=== PATIENT | male | born 1935 | race Caucasian/White ===

== ENCOUNTER → 2016-11-28 | Outpatient (CLI) | payer MEDICARE ==
[2015-07-10 14:50] VITALS: BP 114/65
[~2016-11-28] MED LIST: ASPI-482 PO; ASPI-630 PO; ASPI325T11 PO; ASPI325T8 PO; ATOR10TA60 PO; CELE200C PO; CHOL10003 PO; COLE1TAB2 PO; DOCU100C28 PO; DOXA2TAB PO; DOXA2TAB2 PO; FERR-26 PO; FISH1CAP PO; HYDR-2762 PO; LISI-334 PO; MELA3TAB2 PO; MULT-658 PO; NIAC500T PO; OMEG500C PO; OXYC-323 PO
[2016-11-28 09:22] LABS: BASO % 1 % (0-3); EOS % 3 % (0-3); HEMATOCRIT 43.1 % (39.0-53.0); HEMOGLOBIN 14.7 g/dL (13.0-17.5); LYMPH # 2.1 x10^3/uL (1.0-4.8); LYMPH % 31 % (24-48); MEAN CORPUSCULAR HEMOGLOBIN 33 pg (25-35); MEAN CORPUSCULAR HGB CONC 34 g/dL (31-37); MEAN CORPUSCULAR VOLUME 95 fL (79-100); MONO % 7 % (0-9); NEUT % 59 % (31-73); PLATELET COUNT 153 x10^3/uL (140-400); RED BLOOD COUNT 4.51 x10^6/uL (4.30-5.70); RED CELL DISTRIBUTION WIDTH 13.4 % (11.5-14.5); WHITE BLOOD COUNT 6.7 x10^3/uL (4.0-11.0)
[2016-11-28 09:45] LABS: ALBUMIN 3.9 g/dL (3.4-5.0); CALCIUM 9.4 mg/dL (8.5-10.1); GFR 72.1
[2016-11-28 09:46] LABS: POTASSIUM 5.4 mmol/L (3.5-5.1)
[2016-11-28 10:22] LABS: PROTHROMBIN TIME PATIENT 12.9 SEC (11.7-14.0)
[2016-11-28 11:10] LABS: BILIRUBIN,URINE NEGATIVE (NEG); GLUCOSE,URINE NEGATIVE (NEG); NITRITE,URINE NEGATIVE (NEG); PH,URINE 6.5; PROTEIN,URINE NEGATIVE (NEG-TRACE); UROBILINOGEN,URINE 0.2 mg/dL (0.2 mg/dL)
[2016-11-28 11:21] LABS: BACTERIA,URINE 0 /HPF (0-FEW); RBC,URINE 0 /HPF (0-2); WBC,URINE 0 /HPF (0-4)
--- NOTE | 2016-11-28 13:20 | EKG ---
[facility] [address] [place] [address] Test Date: 2016-11-28 Test Time: 13:16:18 Pat Name: SUMIT GANNON Department: Room: Gender: M Accredited Legal Secretary: JULIA : [id number] Requested By: SUMIT HER Order Number: [id number] Reading MD: Olive Carroll Measurements Intervals [place] Rate: 51 P: ID: QRS: -34 QRSD: 98 T: 63 QT: 452 QTc: 419 Interpretive Statements PROBABLE SINUS RHYTHM ABNORMAL LEFT AXIS DEVIATION LEFT ANTERIOR FASCICULAR BLOCK INCOMPLETE RBBB ABNORMAL ECG Electronically Signed On 11-28-2016 19:07:34 CDT by Olive Carroll
--- NOTE | 2016-11-28 14:53 | RAD ---
Indication preop. Anticipated knee replacement. Frontal and lateral views of the chest were obtained and are compared to an exam 06/24/2015. Somewhat tortuous thoracic aorta is noted similar to the previous exam. Heart size is unchanged. There is no congestive heart failure focal infiltrate significant pleural fluid collection or pneumothorax. A left shoulder prosthesis is noted. IMPRESSION: No acute or focal process is seen in the chest
== END | disposition home or self-care (01) ==
LOC: SURGPAT 13:22
PROVIDERS: ATTEND Orthopaedic Surgery
DX: Z01.818 Encounter for other preprocedural examination (principal); I10 Essential (primary) hypertension; M17.11 Unilateral primary osteoarthritis, right knee; I45.10 Unspecified right bundle-branch block; R00.1 Bradycardia, unspecified; R94.31 Abnormal electrocardiogram [ECG] [EKG]; Z96.651 Presence of right artificial knee joint
CPT/HCPCS: 36415; 71020; 80048; 81001; 82040; 85025; 85610; 85651; 85730; 87641; 93005

== ENCOUNTER → 2016-12-16 | Outpatient (CLI) | payer MEDICARE ==
[2015-07-10 14:50] VITALS: BP 114/65
--- NOTE | 2016-12-16 14:03 | CARD ---
APPROVED REPORT EXAM: Two-dimensional and M-mode echocardiogram with Doppler and color Doppler. Other Information Quality : Good INDICATION Pre-Op 2D DIMENSIONS RVDd2.9 (2.9-3.5cm)Left Atrium(2D)4.3 (1.6-4.0cm) IVSd1.3 (0.7-1.1cm)Aortic Root(2D)3.3 (2.0-3.7cm) LVDd5.4 (3.9-5.9cm)LVOT Diameter2.5 (1.8-2.4cm) PWd1.2 (0.7-1.1cm)LVDs2.9 (2.5-4.0cm) FS (%) 30.0 %SV108.6 ml LVEF(%)60.0 (>50%) Aortic Valve AoV Peak Vasyl.167.9cm/sAoV VTI35.0cm AO Peak GR.11.3mmHgLVOT Peak Vasyl.162.8cm/s LVOT VTI 32.74cmAO Mean GR.6mmHg WILY (VMAX)4.66ne3VYS (VTI)4.68cm2 Mitral Valve MV E Fuhlcjmj96.5cm/sMV DECEL [id number] MV A Yfvxdyqs26.8cm/sMV DXX75tf E/A Ratio0.8MVA (PHT)2.72cm2 TDI E/Medial E'12.2 Tricuspid Valve TR P. Sozwrcoa998oy/sRAP IEOAFEWY3hkIt TR Peak Gr.98kyFmKAOA13ruEx Pulmonary Vein S1 Jhwzuaya45.6cm/sD2 Mqxqlfab21.6cm/s LEFT VENTRICLE The left ventricle is normal size. There is mild concentric left ventricular hypertrophy. The left ve ntricular systolic function is normal and the ejection fraction is within normal range. The Ejection Fraction is 60%. There is normal LV segmental wall motion. Transmitral Doppler flow pattern is Grade I-abnormal relaxation pattern. RIGHT VENTRICLE The right ventricle is normal size. The right ventricular systolic function is normal. ATRIA The left atrium is mildly dilated. The right atrium size is normal. The interatrial septum is intact with no evidence for an atrial septal defect or patent foramen ovale as noted on 2-D or Doppler imagi ng. AORTIC VALVE The aortic valve is calcified but opens well. Doppler and Color Flow revealed no significant aortic r egurgitation. There is no significant aortic valvular stenosis. MITRAL VALVE The mitral valve is normal in structure There is no evidence of mitral valve prolapse. There is no mi tral valve stenosis. Doppler and Color-flow revealed trace mitral regurgitation. TRICUSPID VALVE The tricuspid valve is normal in structure Doppler and Color Flow revealed trace tricuspid regurgitat ion. The PA pressure was estimated at 27 mmHg. There is no tricuspid valve stenosis. PULMONIC VALVE The pulmonary valve is normal in structure Doppler and Color Flow revealed trace pulmonic valvular re gurgitation. There is no pulmonic valvular stenosis. GREAT VESSELS The aortic root is normal in size. The ascending aorta is normal in size. The IVC is normal in size a nd collapses >50% with inspiration. PERICARDIAL EFFUSION There is no evidence of significant pericardial effusion. Critical Notification Critical Value: No <Conclusion> The left ventricular systolic function is normal and the ejection fraction is within normal range. The Ejection Fraction is 60%. Transmitral Doppler flow pattern is Grade I-abnormal relaxation pattern. The left atrium is mildly dilated. The right atrium size is normal. The aortic valve is calcified but opens well. Doppler and Color-flow revealed trace mitral regurgitation. Doppler and Color Flow revealed trace tricuspid regurgitation. The PA pressure was estimated at 27 mmHg. Doppler and Color Flow revealed trace pulmonic valvular regurgitation. There is no evidence of significant pericardial effusion.
== END | disposition home or self-care (01) ==
LOC: ECHO 10:26
PROVIDERS: ATTEND Internal Medicine Cardiovascular Disease
DX: Z01.810 Encounter for preprocedural cardiovascular examination (principal); I51.7 Cardiomegaly
CPT/HCPCS: 93306

== ENCOUNTER → 2017-03-27 | Outpatient (CLI) | payer MEDICARE ==
[2017-03-27 14:58] LABS: C-REACTIVE PROTEIN 1.9 mg/L (0-3.3)
[2017-03-27 15:24] LABS: SEDIMENTATION RATE 7 (0-15)
== END | disposition home or self-care (01) ==
LOC: LAB 13:59
DX: Z47.33 Aftercare following explantation of knee joint prosthesis (principal); Z96.651 Presence of right artificial knee joint
CPT/HCPCS: 36415; 85651; 86140

== ENCOUNTER → 2017-12-05 | Outpatient (CLI) | payer MEDICARE ==
[2016-12-23 14:45] VITALS: BP 116/61
[~2017-12-05] MED LIST changes: -FERR-26 PO; +FERR325T14 PO
--- NOTE | 2017-12-05 14:21 | KCIC ---
MR of the left ankle and foot Indication: Left ankle pain and left heel pain for 2 months.. Plantar fasciitis. Metal foreign body. Technique: Standard multiplanar sequences are obtained. ANKLE: Lateral: Peroneal tendons: Intact, no dislocation Lateral collateral ligaments: * Anterior talofibular ligament: Intact * Calcaneofibular ligament: Intact * Posterior talofibular ligament: Intact Tibiofibular syndesmosis: Anterior inferior tibiofibular ligament is intact. Tibiofibular syndesmosis is intact. Medial: Posterior tibial tendon: Intact Flexor digitorum longus tendon: Intact Flexor hallucis longus tendon: Intact Medial ligaments: No evidence of acute deltoid ligament tear Anterior: Anterior tibial tendon: Intact Extensor hallucis longus tendon: Intact Extensor digitorum longus tendon: Intact Posterior: Achilles tendon: Intact, small enthesophyte at the insertion Plantar aponeurosis: Mild thickening and signal within the plantar aponeurosis compatible with mild plantar fasciitis. Subjacent calcaneal marrow edema and enthesophyte. Subtalar joints: Patent Tarsal sinus: Intact Talar Dome: Intact Bones: No significant lesion or acute fracture Fluid: Only trace subtalar and tibiotalar joint fluid. Joints: No advanced DJD. Soft tissues: Mild generalized subcutaneous edema. FOOT: No bone lesion, acute fracture or marrow edema. No significant joint effusion. No evidence of acute sesamoiditis. Mild degenerative changes at the first toe. There is metal artifact at the dorsal midfoot, similar to what was seen on previous foot MRI of December 11, 2013. Lisfranc ligament complex appears intact although is partially obscured by the metal artifact. No significant joint effusion. The tendons in the foot are intact without significant tendon sheath fluid. IMPRESSION: Plantar fasciitis, appears slightly worse as compared with the previous exam. Electronically signed by: Darron Knight MD (12/05/2017 2:18 PM) [id number]
== END | disposition home or self-care (01) ==
LOC: KCIC MRI 12:03
PROVIDERS: ATTEND Podiatrist
DX: M72.2 Plantar fascial fibromatosis (principal); R60.0 Localized edema
CPT/HCPCS: 73718; 73721